=== PATIENT | female | born 1975 | race Caucasian/White ===

== ENCOUNTER → 2018-05-04 14:04 | Outpatient (CLI) | payer BC, SELFPAY ==
[2018-05-04 14:48] LABS: Hemoglobin 13.2 g/dl (12.0-15.0); Mean Corp Hgb Conc 31.4 g/gl (32-36); Mean Corpuscular Hgb 26.3 pg (27.0-32.0); Mean Corpuscular Volume 83.8 fL (81-99); Mean Platelet Vol. 9.2 fl (6.2-12.0); Platelet Count 241 K/mm3 (150-450); RBC Distribution Width CV 13.7 % (11.6-14.6); RBC Distribution Width SD 41.8 fl (35.1-43.9); Red Blood Count 5.01 M/mm3 (4.2-5.4)
[2018-05-04 14:52] LABS: Scan Indicated on CBC? Y/N NO
[2018-05-04 15:04] LABS: Estradiol 79.6 pg/mL; Free T3 2.8 pg/mL (2.18-3.98); T4 Free Direct 0.97 ng/dL (0.76-1.46); Thyroid Stim Hormone (TSH) 1.14 uIU/mL (0.358-3.74)
[2018-05-04 15:06] LABS: Progesterone Level 4.74 ng/mL (See Comment)
[2018-05-04 15:17] LABS: Hemoglobin A1c 5.6 % (4.2-6.3)
== END ==
PROVIDERS: Family Provider Family Medicine; PCP Family Medicine; Visit Provider Obstetrics & Gynecology
DX: N92.6 Irregular menstruation, unspecified (principal)
CPT/HCPCS: 82670; 83036; 84144; 84403; 84439; 84443; 84481; 85027

== ENCOUNTER → 2018-05-31 | Outpatient (CLI) | payer BC, SELFPAY ==
[2018-06-02 13:32] LABS: HPV Reflexed? NOT INDICATED
== END | disposition home or self-care (01) ==
LOC: LABSPEC 10:42
PROVIDERS: Visit Provider Obstetrics & Gynecology
DX: Z12.4 Encounter for screening for malignant neoplasm of cervix (principal)
CPT/HCPCS: 88175; G0145

== ENCOUNTER → 2018-06-27 | Outpatient (CLI) | payer BC, SELFPAY ==
--- NOTE | 2018-06-27 07:01 | BI_ITS ---
MAMMOGRAPHY - BILATERAL SCREENING REASON FOR EXAM: Female, 42 years old. Routine annual screening examination. PERTINENT HISTORY: Non-contributory. TECHNIQUE: Digital bilateral breast tamiko (3D mammographic acquisition) in the CC and MLO projections. 2-D mediolateral oblique (MLO) and craniocaudad (CC) views of both breasts were obtained. CAD: Full Field Digital Mammography with Computer Added Detection was performed. COMPARISON: Comparison is made with prior study dated September 23, 2016 and August 19, 2015. FINDINGS: Breast Composition: There are scattered areas of fibroglandular density. There are no dominant masses or suspicious calcifications. No other significant abnormalities are identified. There has been no significant change since the prior study. BI/SCREENING MAMM (CAD), BILAT IMPRESSION: Stable bilateral screening mammogram. Yearly follow-up mammogram recommended. (A) ASSESSMENT CATEGORY: BIRADS Category 1: Negative. A letter regarding these results will be sent to the patient by the facility within 30 days. Approximately 10% of breast cancers are not detected by mammography. A normal mammogram should not delay biopsy of a clinically suspicious abnormality. [id number] Electronically Signed: Levi Obrien, at 9:28 EDT , Service support ,
== END | disposition home or self-care (01) ==
PROVIDERS: Family Provider Family Medicine; PCP Family Medicine; Referring Provider Obstetrics & Gynecology; Visit Provider Obstetrics & Gynecology
DX: Z12.31 Encounter for screening mammogram for malignant neoplasm of breast (principal)
CPT/HCPCS: 77063; 77067

== ENCOUNTER → 2018-07-19 | Outpatient (CLI) | payer BC, SELFPAY ==
[2018-07-19 09:22] LABS: Hematocrit 38.9 % (37-47); Hemoglobin 12.4 g/dl (12.0-15.0); Mean Corp Hgb Conc 31.9 g/gl (32-36); Mean Corpuscular Hgb 24.8 pg (27.0-32.0); Mean Corpuscular Volume 77.6 fL (81-99); Mean Platelet Vol. 9.7 fl (6.2-12.0); Platelet Count 231 K/mm3 (150-450); RBC Distribution Width CV 14.2 % (11.6-14.6); Red Blood Count 5.01 M/mm3 (4.2-5.4); White Blood Count 8.6 K/mm3 (4.4-11.0)
[2018-07-19 09:23] LABS: Scan Indicated on CBC? Y/N NO
[2018-07-19 09:28] LABS: Prothrombin Time (Protime)PT. 12.8 SECONDS (11.7-14.9)
== END | disposition home or self-care (01) ==
LOC: PAT 08-21 12:32
PROVIDERS: Family Provider Family Medicine; PCP Family Medicine; Referring Provider Obstetrics & Gynecology; Visit Provider Obstetrics & Gynecology
DX: Z01.818 Encounter for other preprocedural examination (principal)
CPT/HCPCS: 36415; 85027; 85610; 85730; 86850; 86900

== ENCOUNTER → 2018-07-26 | Outpatient (CLI) | payer BC, SELFPAY ==
--- NOTE | 2018-07-26 | EMB_PTH ---
PATIENT: KOLTON WEBER LOC: [facility] U#:[id number] AGE/SX: 42/F ROOM: RE07/26/[address]: Dr. Mellisa Wright MD : 1975 BED: DIS: 07/26/2018 SPEC #: [id number] RECD: 07/26/18 14:24 STATUS: ALLAN RAYMOND #: [id number] ROM: 07/26/18 00:[address]: Mellisa Wright DEPT: SURGICAL PATHOLOGY RECD BY: Nilson Celeste ENTERED: 07/26/18 14:24 SP TYPE: ENDOM BX/C JB DR: Dr. Celia Forrester, DO Tissues: Endometrium, NOS Procedures: Surgery Specimen Level IV HEADER OPERATION: Endometrial biopsy PRE-OP DIAGNOSIS: Abnormal uterine bleeding TISSUE SUBMITTED: Endometrial biopsy MICROSCOPIC DIAGNOSIS Endometrial biopsy: Secretory pattern endometrium with focal pseudodecidual change and recent stromal hemorrhage. CE:michael 07/27/18 MICROSCOPIC DESCRIPTION Slides are reviewed. GROSS DESCRIPTION Received in fixative is one container labeled with the patient's name and designated endometrial biopsy. The specimen consists of several serpentine segments of reddish-pink soft tissue that in aggregate measure 2 x 1 x 0.2 cm. The specimen is totally submitted in one cassette. / CE:michael 07/26/18 TC:5 CPT: 36508
== END | disposition home or self-care (01) ==
PROVIDERS: Family Provider Family Medicine; PCP Family Medicine; Referring Provider Obstetrics & Gynecology; Visit Provider Obstetrics & Gynecology
DX: N85.8 Other specified noninflammatory disorders of uterus (principal); N93.9 Abnormal uterine and vaginal bleeding, unspecified
CPT/HCPCS: 88305

== ENCOUNTER 2019-01-01 10:49 | Day surgery (SDC) | payer BC, SELFPAY ==
[2018-12-27 17:12] LABS: Hematocrit 44.8 % (37-47); Hemoglobin 15.1 g/dL (12.0-15.0); Mean Corp Hgb Conc 33.7 g/dL (32-36); Mean Corpuscular Hgb 28.1 pg (27.0-32.0); Mean Corpuscular Volume 83.4 fL (81-99); Mean Platelet Vol. 9.4 fl (6.2-12.0); Platelet Count 246 K/mm3 (150-450); RBC Distribution Width SD 39.1 fl (35.1-43.9); Red Blood Count 5.37 M/mm3 (4.2-5.4); White Blood Count 10.3 K/mm3 (4.4-11.0)
[2018-12-27 17:22] LABS: Prothrombin Time (Protime)PT. 12.8 SECONDS (11.7-14.9)
[2018-12-27 17:23] LABS: Partial Thromboplast Time 31.4 Seconds (24.1-36.2)
[2018-12-27 17:41] LABS: Creatinine, Serum 0.76 mg/dL (0.55-1.02); EST Glomerular Filtration Rate 87 mL/min (>60); Est Glom Filt Rate - Afr Amer 105 mL/min (>60)
[2018-12-27 17:54] LABS: Internal QC Validated? YES +Cl - CLEAR BKGD; Pregnancy, Serum, hCG Quali. NEGATIVE Negative
--- NOTE | 2018-12-31 22:44 | PCM.HP.BLA ---
History and Physical Date of Admission: 01/01/19 Surgical History and Physical Basia Garcia, a 43 year old female 1 0 0 0 1, presents for LAVH/BS on January 01, 2019 at 12:15. -- Uterine Prolapse and Fibroids; Menorrhagia -- Pt has had some bleeding between periods before LMP. Also prolapse is becoming more painful and discomfort. Irregular and heavy periods. Pt decided that she would like to precede with hysterectomy. Ultrasound: uterus: 10.9 x 7.1 x 7.3 cm and contains fibroids. 1-posterior/rt-2.4 x 1.5 x 3.2 cm and 2-posterior/lt-3 x 2.7 x 3.4 cm. The posterior/left fibroid appears to be distorting the posterior uterus to the Endometrium. Uterus is difficult to visualize due to the prolapse. MEDICATIONS HISTORY: Patient is also takin. lisinopril 10 mg tablet, One pill by mouth once a day ALLERGIES: NKDA Infections - chicken pox as a child Illnesses - no serious past illnesses Accidents - no injuries of consequence Hospitalizations - Childbirth Review of Systems: GENERAL - Denies fever, or chills SKIN - Denies skin changes EYES - Denies visual changes EARS - Denies difficulty hearing NOSE - Denies nasal congestion or bleeding MOUTH - Denies sore throat or difficulty swallowing NECK - Denies pain or swelling RESPIRATORY - Denies shortness of breath or wheezing CARDIOVASCULAR - Denies palpitations or chest pain GASTROINTESTINAL - Denies nausea, vomiting, diarrhea, constipation GENITOURINARY - Denies dysuria, frequency of urination, incontinence of urine MUSCULOSKELETAL - Denies joint or muscle pain NEUROLOGICAL - Denies localized numbness or weakness PSYCHIATRIC - Denies depression or anxiety ENDOCRINE - Denies heat or cold intolerance, weight loss or gain HEMATO-IMMUNOLOGIC - Denies excesive bleeding with cuts SOCIAL HISTORY: Alcohol Use - RARELY Smoking - denies smoking Diet - balanced Diet Lifestyle - moderate stress lifestyle and Exercise - regular and very active Seat Belt Use - always Employer - [employer] Job Description - [employer] Illicit Drug Use - denies use of street drugs Sexual Activity - single sexual partner and Residence - lives with Hours Worked - 40 hours per week Spouse-Sig Other Name - Saravanan Spouse-Sig 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 Paternal history of Heart Disease. Father: myelodysplastic syndrome at age 50. Maternal Grandmother: leukemia. MENSTRUAL HISTORY: LMP Known?- DefiniteAmount/Duration - 4-5 DAYS, Regularity - Regular, Frequency - 28 days, LMP - 12/27/18, Age Onset Menarche - 11 PAST PREGNANCIES: Total Pregnancies - 1; Full Term Pregnancies - 1; Premature - 0; Abortions, Induced - 0; Abortions, Spontaneous - 0; Ectopics - 0; Multiple Births - 0; Living Children - 1 SURGICAL HISTORY: 1. wisdom teeth removed PHYSICAL EXAM BP- 116/78 Sitting, Right arm, regular cuff Weight- 209.42270 lbs Height- 68.5 inch BMI:31.38 CONSTITUTIONAL - NAD, well nourished, and well developed SKIN - No rash, lesions, or ulcers HEENT - Normocephalic, PERRLA, EOMI NECK - No nodes, no nuchal rigidity and thyroid normal size and texture LYMPH NODES - Palpation of lymph nodes in neck and groins within normal limits LUNGS - CTA x2 without wheezes, crackles or rales CARDIAC - Regular rate and rhythm without rubs, murmurs, or gallops BREAST - No dominant masses, no tenderness, no axillary adenopathy, no nipple discharge, no skin changes ABDOMEN - Without hepatosplenomegaly, distention, masses, rebound, or guarding; normal bowel sounds; no hernias EXTREMITIES - No edema or calf tenderness NEUROLOGICAL - Cranial nerves II-XII grossly intact PSYCHIATRIC - A and O to time, place, person, mood and affect External Genitial Vagina - non-tender without lesions Urethra/Urethral Meatus - non-tender Bladder - non-tender Vagina - vaginal enrique are pink and moist without loss of rugae and no evidence of atropy Cervix - without cervical motion tenderness and has normal size and features without evident lesions Uterus - 5-6 cm in size, mobile and nontender Adnexa - clear without massess or tenderness ASSESSMENT/PLAN: Uterine Prolpase, Fibroids and Menorrhagia. Plan to proceed with LAVH/BS. Discussed RBAs and all questions answered.
[2019-01-01] VITALS (9 sets, daily range): BP systolic 87–141; BP diastolic 64–86; PULSE 61–92; RESP 15–18; TEMP 36.3–37.4; O2SAT 94–99; BMI 31.4
[2019-01-01 11:22] LABS: Internal QC Validated? YES +Cl - CLEAR BKGD; Pregnancy, Urine Negative Negative
[2019-01-01] MEDS: Lactated Ringers 1,000 ML 100 ML IV ×2 (11:35→17:05)
--- NOTE | 2019-01-01 12:25 | HYST_PTH ---
PATIENT: KOLTON WEBER LOC: [facility] [place] U#:[id number] AGE/SX: 43/F ROOM: RE01/01/[address]: Dr. Yoandy Yu MD : 1975 BED: DIS: 01/02/2019 SPEC #: [id number] RECD: 01/01/19 16:13 STATUS: ALLAN RAYMOND #: [id number] ROM: 01/01/19 12:[address]: Yoandy Yu DEPT: SURGICAL PATHOLOGY RECD BY: Catrachito Acosta ENTERED: 01/02/19 11:03 SP TYPE: HYSTERECT OTHR DR: Dr. Celia Forrester, DO Tissues: Uterus, NOS Procedures: Surgery Specimen Level V HEADER OPERATION: Hysterectomy, Lap assisted vaginal, salpingectomy PRE-OP DIAGNOSIS: Uterine prolapse, fibroids and menorrhagia TISSUE SUBMITTED: Uterus, bilateral fallopian tubes MICROSCOPIC DIAGNOSIS Uterus and bilateral fallopian tubes, vaginal hysterectomy and bilateral salpingectomy: Cervix - chronic cystic cervicitis and squamous metaplasia. Inflamed benign ecto- and endocervical polyp (3.5 cm in greatest length). Endometrium - focal simple hyperplasia without atypia. See comment. Myometrium - intramural ad subserosal leiomyomas (largest measuring 3 cm in greatest dimension). Bilateral fallopian tubes - no pathologic diagnosis. SJ:rg 01/03/19 COMMENT Focal morular metaplasia is also noted. Case has been reviewed in consultation with Dr. Rome who concurs with the above diagnosis. IDC:AM MICROSCOPIC DESCRIPTION Slides are reviewed. GROSS DESCRIPTION Received in fixative is one container labeled with the patient's name and designated uterus. The specimen consists of a uterus with attached cervix and attached right and left fallopian tubes. The uterus with cervix measures 13.5 x 7 x 6 cm and weighs 227 gm. The ectocervix is grossly unremarkable. A cervical polyp is seen at the endocervical opening measuring 3.5 cm in length and 0.5 cm in width. The endocervical canal measures 3.4 cm in length and is grossly unremarkable. The triangular endometrial cavity measures 4.2 x 3 cm. The endometrium measures up to 0.2 cm in thickness. The myometrium measures 2.2 cm in average thickness and distorted by multiple spherical rubbery nodules ranging in size from 0.5 to 3 cm. The nodules are intramural and subserosal in location. The right and left fallopian tubes are similar in appearance with average lengths of 5.5 mm and average diameters of 0.7 cm. Asset Management Lead sections are submitted in 11 cassettes as follows: 1 - anterior cervix, 2 - posterior cervix, 3 & 4 - anterior uterine wall, 5 & 6 - posterior uterine wall, 7 - largest myometrial mass, 8 - smaller myometrial masses, 9 - right fallopian tube, 10 - left fallopian tube, 11 - cervical polyp. / AM:michael 01/02/19 TC:1 CPT: 39401
[2019-01-01] MEDS: Ropivacaine 0.5% 30 ML Vial (16:00)
--- NOTE | 2019-01-01 16:09 | PCM.OPRPT ---
Report of Operation Date of Procedure: 01/01/19 Pre-Operative Diagnosis: Uterine Prolapse, Uterine Fibroids, Menorrhagia Post-Operative Diagnosis: Uterine Prolapse, Uterine Fibroids, Menorrhagia Surgery/Procedure Performed:: Laparoscopic Assisted Vaginal Hysterectomy and Bilateral Salpingectomy Description of Surgical Findings:: 12 cm size uterus with normal-appearing fallopian tubes and ovaries. Cervix which prolapsed approximately 2 to 3 cm outside the vaginal introitus at rest. 2 cm x 0.25 cm polyp noted on endocervix. Mild to moderate cystocele and rectocele nurse prn: Cody Gordon nurse prn: Adelaide Lind Type of Anesthesia:: General - Endotracheal Anesthesiologist: Kenny Griggs Specimen's removed: Uterus and bilateral fallopian tubes Drains: Frank to straight drain Estimated Blood Loss (mL): 150 cc Fluids Replaced: 1800 cc crystalloid Description of Procedure: Surgeon: Yoandy Yu MD, FACOG Indications: This is a 43-year-old patient who is been having problems with uterovaginal prolapse and menorrhagia. Conservative measures have not been helpful. Given this the patient desires that we proceed the above procedure. She has been counseled regarding the risk and indications of this procedure including the possibility of bleeding, infection, and injury to surrounding structures such as bowel bladder. All questions were answered. Procedure: Patient was taken to the operating room where after induction of general anesthesia she was placed in the dorsal lithotomy position and prepped and draped in the usual sterile fashion. A Frank catheter was placed. Anterior cervix was grasped with a tenaculum and anterior cervix circumscribed with cautery on a setting of 35 W coagulation. Anterior vaginal mucosa was undermined and a 4 x 4 raytec sponge was placed to identify the peritoneal reflection of the bladder intraperitoneally. Conn cannula was placed and attention was turned towards the laparoscopic portion of the procedure. Approximately 30 cc of half percent ropivacaine was injected subumbilically, suprapubically, and midway between. A 5 mm bladeless trocar was introduced subumbilically and intraperitoneal placement confirmed. CO2 insufflation was completed and, under direct visualization, a 5 mm bladeless trocar was introduced suprapubically. A 5 mm bladeless trocar was introduced midway between these 2 ports. Enseal was used to cauterize the infundibulopelvic ligaments to the level of the round ligament and the Raytec placed in the vagina was visualized. Scissors was used to open the peritoneum and under direct visualization a narrow Mariano was placed vaginally; CO2 gas was stopped and attention turned toward the vaginal hysterectomy portion of the procedure. The posterior aspect of the cervix was circumscribed with a knife and posterior peritoneum easily entered. Progressive bites were taken on either side of the uterine cervix and each pedicle ligated with 0 Vicryl suture. Superior pedicles were ligated ?2 with 0 Vicryl suture and sidewall pedicles were examined and oversewn where necessary with [id number] 0 Vicryl suture to achieve hemostasis. Posterior vaginal cuff was oversewn with running locked 0 Vicryl suture. Hemostasis was noted and peritoneum was closed in a pursestring fashion incorporating superior pedicles into the stitch. Vaginal cuff was then closed front to back with interrupted [id number] 0 Vicryl suture. Hemostasis was noted. Attention was turned toward the laparoscopic portion of the procedure. CO2 insufflation was completed and pedicles were examined and noted to be hemostatic. Laparoscopic instruments with as much CO2 gas as possible was removed and skin incisions were closed with interrupted 4-0 Monocryl suture. Steri-Strips were placed across the incisions. Patient tolerated the procedure well was taken to recovery room in satisfactory condition; sponge instrument and needle counts were all reportedly correct. Estimated blood loss for the case was 150 cc. For 10 2 g IV was given prior to beginning the operative procedure. There were no apparent complications of the surgery. Specimen to pathology was uterus and bilateral fallopian tubes. Grafts/Implants Used: None - Complications None - Admit VTE Documentation VTE Present on Admission: Yes VTE Mechan Device Prophylaxis: [facility] [place] Pharm Prophylaxis ordered?: Yes
--- NOTE | 2019-01-01 16:15 | DCINST_ITS ---
Discharge Diet: No Restrictions Discharge Activity: Return to Normal Activity, May Not Drive - while taking narcotic pain medications., May Shower, May Take a Tub Bath May resume sexual activity in: 6-8 weeks Call your doctor if your incision/area has: Continuous Slow Oozing, Sudden Inc reased Bleeding, Increased Pain/ Swelling, Increased Redness, Foul Smelling Discharge Call your doctor if you observe: Fever of 101 or Higher, Inability to urinate, Inability to have a bowel movement, Using more than one pad per hour Allergies/Adverse Reactions: Allergies No Known Allergies Allergy (Verified 01/01/19 11:18) Medications to take at Discharge Lisinopril [Prinivil] 10 mg PO QHS 07/13/18 Multivitamin with Minerals [Hair, Skin & Nails] 1 each PO BID 07/13/18 Steward-3 Fatty Acids/Fish Oil [Fish Oil 1,000 mg Capsule] 1 each PO DAILY 07/13/18 Ferrous Sulfate 325 mg PO DAILY 12/25/18 Docusate Sodium [Colace] 100 mg PO BID PRN PRN #60 cap 01/01/19 Oxycodone [Oxyir] 5 mg PO Q6H PRN PRN 7 Days #20 tablet 01/01/19 The following prescriptions were given: Docusate Sodium [Colace] 100 mg PO BID PRN PRN #60 cap PRN Reason: Constipation Transmission Status: Pending to [facility] Oxycodone [Oxyir] 5 mg PO Q6H PRN PRN 7 Days #20 tablet PRN Reason: Pain Score 6-10/10 Transmission Status: Sent to [facility] Orders to be completed after discharge: CBC-Complete Blood Cnt No Diff Time Frame: 01/01/19, Facility: [facility], Location: Laboratory Partial Thromboplast Time Time Frame: 01/01/19, Facility: [facility], Location: Laboratory Prothrombin Time w/INR Time Frame: 01/01/19, Facility: [facility], Location: Laboratory Primary Care Physician: Celia Forrester [Primary Care Provider] - Test Results: Test results from this visit will be discussed in further detail at your follow- up appointment, if applicable.
[2019-01-01] MEDS: Ketorolac 30 MG/ML Syringe IV ×2 (18:25→23:45)
[2019-01-01] MEDS: Dextrose 5%-Lactated Ringers 1,000 ML 150 ML IV (18:25)
[2019-01-01] MEDS: Ondansetron 4 MG/2 ML Vial IV ×2 (19:21→23:45)
[2019-01-01] MEDS: Enoxaparin 30 MG/0.3 ML Syringe SC (20:28)
[2019-01-01] MEDS: Acetaminophen 500 MG Tablet 1000 MG PO (20:28)
[2019-01-01] MEDS: Lisinopril 10 MG Tablet PO (22:11)
[2019-01-01] MEDS: 0.9% Saline Lock 10 ML Syringe IV ×2 (23:45→23:50)
[2019-01-02] MEDS: oxyCODONE 5 MG Tablet PO ×2 (01:01→08:24)
[2019-01-02] MEDS: Dextrose 5%-Lactated Ringers 1,000 ML 150 ML IV (01:02)
[2019-01-02 04:05] VITALS: BP 118/75; PULSE 97; RESP 16; TEMP 37.3; O2SAT 95
[2019-01-02] MEDS: Acetaminophen 500 MG Tablet 1000 MG PO (04:12)
[2019-01-02] MEDS: Ketorolac 30 MG/ML Syringe IV (05:46)
[2019-01-02 06:02] LABS: Hematocrit 35.6 % (37-47); Hemoglobin 11.7 g/dL (12.0-15.0); Mean Corp Hgb Conc 32.9 g/dL (32-36); Mean Corpuscular Hgb 27.7 pg (27.0-32.0); Mean Corpuscular Volume 84.4 fL (81-99); Mean Platelet Vol. 9.2 fl (6.2-12.0); Platelet Count 243 K/mm3 (150-450); RBC Distribution Width CV 12.6 % (11.6-14.6); RBC Distribution Width SD 38.1 fl (35.1-43.9); Red Blood Count 4.22 M/mm3 (4.2-5.4); White Blood Count 16.2 K/mm3 (4.4-11.0)
[2019-01-02 06:31] LABS: EST Glomerular Filtration Rate 82 mL/min (>60); Est Glom Filt Rate - Afr Amer 99 mL/min (>60); Estimated Creatinine Clearance 92.81 ml/min
[2019-01-02 08:12] VITALS: BP 133/81; PULSE 80; PULSE 88; RESP 18; TEMP 36.8; O2SAT 97
[2019-01-02] MEDS: Docusate Sodium 100 MG Capsule PO (08:23)
--- NOTE | 2019-01-02 08:47 | PN.OBGYN_ITS ---
Subjective: Patient without complaints. Tolerating diet well. Denies flatus. Minimal vaginal bleeding. Feeling well. Ready to go home. - Physical Exam Vitals/I&O's: Vital Signs Temp Pulse Resp BP Pulse Ox 98.2 F 88 18 133/81 H 97 01/02/19 08:12 01/02/19 08:12 01/02/19 08:12 01/02/19 08:12 01/02/19 08:12 Oxygen Delivery Method Room Air Weight: 212 lb 15.465 oz Body Mass Index (BMI) 31.4 Intake and Output for Last 24 Hours 12/31/18 01/01/19 01/02/19 23:59 23:59 23:59 Intake Total 1191.67 / 1491.67 3240.0 / 3240.0 Output Total 50 / 575 2875 / 2875 Balance 1141.67 / 916.67 365.0 / 365.0 Comment: Hemoglobin and creatinine okay. Minimal vaginal bleeding. Laboratory Results 01/01/19 11:17: Urine Test Negative 01/02/19 05:35: WBC 16.2 H, RBC 4.22, Hgb 11.7 L, Hct 35.6 L, MCV 84.4, MCH 27.7, MCHC 32.9, RDW Std Deviation 38.1, RDW Coeff of Linda 12.6, Plt Count 243, MPV 9.2 01/02/19 05:35: Creatinine 0.80, Estim Creat Clear Calc 92.81, Est GFR (MDRD) Af Amer 99, Est GFR (MDRD) Non-Af 82 Current Medications Acetaminophen (Tylenol) 1,000 mg PO Q8H PRN PRN PRN Reason: Pain Score 1-3/10 or Fever Last Admin: 01/02/19 04:12 Dose: 1,000 mg Documented by: Docusate Sodium (Colace) 100 mg PO BID PRN PRN PRN Reason: Constipation Last Admin: 01/02/19 08:23 Dose: 100 mg Documented by: Hydromorphone HCl (Dilaudid Inj) 0.5 mg IV Q3H PRN PRN PRN Reason: Pain Score 4-10/10 Sodium Chloride () 250 mls @ 15 mls/hr IV .[id number] PRN PRN Reason: Saline Flush Ketorolac Tromethamine (Toradol) 10 mg PO Q6 [facility] Stop: 01/07/19 05:51 Last Admin: 01/02/19 05:59 Dose: Not Given Documented by: Lisinopril (Zestril) 10 mg PO QHS [facility] Last Admin: 01/01/19 22:11 Dose: 10 mg Documented by: Ondansetron HCl (Zofran) 4 mg IV Q4H PRN PRN PRN Reason: NAUSEA Last Admin: 01/01/19 23:45 Dose: 4 mg Documented by: Oxycodone HCl (Oxyir) 5 mg PO Q4H PRN PRN PRN Reason: Pain Score 4-10/10 Last Admin: 01/02/19 08:24 Dose: 5 mg Documented by: Simethicone (Mylicon) 80 mg PO PCHS [facility] Last Admin: 01/02/19 08:23 Dose: 80 mg Documented by: Sodium Chloride () 10 - 40 ml IV UD PRN PRN Reason: SALINE FLUSH Last Admin: 01/01/19 23:50 Dose: 10 ml Documented by: Medical Necessity - Tobacco Use Smoking Status: Never smoker Tobacco Use: Non-smoker Assessment/Plan Doing well postoperative day #1 status post laparoscopic assisted vaginal hysterectomy and bilateral salpingectomy. Will release to home with routine instructions.
== END 2019-01-02 10:36 | disposition home or self-care (01) ==
LOC: SDC 10:50 → AC 10:50 → MS3 16:11
PROVIDERS: Anesthesiology; Family Provider Family Medicine; PCP Family Medicine; Referring Provider Obstetrics & Gynecology; Visit Provider Obstetrics & Gynecology
PROC: 0UT9FZZ Resection of Uterus, Via Natural or Artificial Opening With Percutaneous Endoscopic Assistance (ICD-10-PCS; CPT 58552; principal; 2019-01-01 12:00)
DX: N87.9 Dysplasia of cervix uteri, unspecified (principal); D25.1 Intramural leiomyoma of uterus; D25.2 Subserosal leiomyoma of uterus; I10 Essential (primary) hypertension; Z79.899 Other long term (current) drug therapy
CPT/HCPCS: 58552; 36415; 81025; 82565; 84703; 85027; 85610; 85730; 86850; 86900; 86901; 88307; J7120; A4216; C1760; J2405

== ENCOUNTER → 2019-01-17 16:52 | Outpatient (CLI) | payer BC, SELFPAY ==
[2019-01-01 18:01] VITALS: BMI 31.4
== END ==
PROVIDERS: Visit Provider Obstetrics & Gynecology
DX: R30.0 Dysuria (principal)
CPT/HCPCS: 87086; 87088

== ENCOUNTER → 2020-03-26 07:08 | Outpatient (CLI) | payer OTHER, SELFPAY ==
[2019-01-01 18:01] VITALS: BMI 31.4
--- NOTE | 2020-03-26 07:11 | BI_ITS ---
MAMMOGRAPHY - BILATERAL SCREENING REASON FOR EXAM: Female, 44 years old. Routine annual screening examination. PERTINENT HISTORY: Non-contributory. TECHNIQUE: Digital bilateral breast garrett (3D mammographic acquisition) in the CC and MLO projections. 2-D mediolateral oblique (MLO) and craniocaudad (CC) views of both breasts were obtained. CAD: Full Field Digital Mammography with Computer Added Detection was performed. COMPARISON: Comparison is made with prior study dated 06/27/2018 and 09/23/2016. FINDINGS: Breast Composition: There are scattered areas of fibroglandular density. There are no dominant masses or suspicious calcifications. No other significant abnormalities are identified. There has been no significant change since the prior study. BI/SCRN MAMM (CAD)W/GARRETT BILAT IMPRESSION: Stable bilateral screening mammogram. Yearly follow-up mammogram recommended. (A) ASSESSMENT CATEGORY: BIRADS Category 1: Negative. A letter regarding these results will be sent to the patient by the facility within 30 days. Approximately 10% of breast cancers are not detected by mammography. A normal mammogram should not delay biopsy of a clinically suspicious abnormality. [id number] Electronically Signed: Levi Obrien MD at 8:01 EST , Service support ,
== END ==
PROVIDERS: PCP Family Medicine; Referring Provider Nurse Practitioner Gerontology; Visit Provider Nurse Practitioner Gerontology
DX: Z12.31 Encounter for screening mammogram for malignant neoplasm of breast (principal)
CPT/HCPCS: 77063; 77067

== ENCOUNTER → 2021-01-16 08:39 | Outpatient (CLI) | payer OTHER, SELFPAY ==
--- NOTE | 2021-01-16 09:30 | RAD_ITS ---
STUDY: BARIUM ENEMA. REASON FOR EXAM: Female, 45 years old. INCOMPLETE COLONOSCOPY FLUOROSCOPY TIME (if supplied): ( 1 minute and 10 seconds. ) minutes/seconds. 15 images were obtained. TECHNIQUE: A marketing communications specialist film was obtained. Following this, contrast was introduced retrograde into the rectum. The entire colon was opacified. COMPARISON: None. FINDINGS: The gas pattern is unremarkable on the marketing communications specialist film. There is borderline splenomegaly. No evidence of obstruction to the antegrade or retrograde flow of barium. No mass lesion is seen. RAD/Barium Enema No Air Cont IMPRESSION: Unremarkable barium enema. Electronically Signed: Levi Obrien MD at 10:33 EST , Service support ,
== END ==
PROVIDERS: PCP Family Medicine; Referring Provider Surgery; Visit Provider Surgery
DX: Z53.9 Procedure and treatment not carried out, unspecified reason (principal); Z83.71 Family history of colonic polyps
CPT/HCPCS: 74270

== ENCOUNTER → 2021-05-27 07:29 | Outpatient (CLI) | payer OTHER, SELFPAY ==
--- NOTE | 2021-05-27 07:33 | BI_ITS ---
MAMMOGRAPHY - BILATERAL SCREENING 3-D TOMOSYNTHESIS REASON FOR EXAM: Female, 45 years old. SCREENING PERTINENT HISTORY: No significant family history. TECHNIQUE: 2-D mammograms and 3-D Tomosynthesis of the breast (s) were performed. CAD was performed. COMPARISON: 03/26/2020 FINDINGS: The breast composition is composed of scattered fibroglandular density. Scattered benign calcifications are seen. No dense spiculated masses or suspicious microcalcifications are identified. No architectural distortion is identified. There is no skin thickening or retraction. There has been no significant change since the prior study. BI/SCRN MAMM (CAD)W/GARRETT BILAT IMPRESSION: No mammographic signs of malignancy. Routine yearly mammograms recommended. ASSESSMENT CATEGORY: BIRADS Category 1: Negative. A letter regarding these results will be sent to the patient by the facility within 30 days. FOLLOW UP RECOMMENDATION: Yearly follow up mammogram recommended. (A) Approximately 10% of breast cancers are not detected by mammography. A normal mammogram should not delay biopsy of a clinically suspicious abnormality. Electronically Signed: René Silav MD at 8:55 EDT ,
== END ==
PROVIDERS: PCP Family Medicine
DX: Z12.31 Encounter for screening mammogram for malignant neoplasm of breast (principal)
CPT/HCPCS: 77063; 77067

== ENCOUNTER → 2022-11-01 | Outpatient (CLI) | payer OTHER, SELFPAY ==
--- NOTE | 2022-11-01 12:29 | BI_ITS ---
MAMMOGRAPHY - BILATERAL SCREENING REASON FOR EXAM: Female, 47 years old. Routine annual screening examination. PERTINENT HISTORY: Non-contributory. TECHNIQUE: Digital bilateral breast garrett (3D mammographic acquisition) in the CC and MLO projections. 2-D mediolateral oblique (MLO) and craniocaudad (CC) views of both breasts were obtained. CAD: Full Field Digital Mammography with Computer Added Detection was performed. COMPARISON: Comparison is made with prior study dated May 27, 2021 and March 26, 2020. FINDINGS: Breast Composition: There are scattered areas of fibroglandular density. There are no dominant masses or suspicious calcifications. Stable small benign appearing bilateral axillary lymph nodes. No other significant abnormalities are identified. There has been no significant change since the prior study. BI/SCRN MAMM (CAD)W/GARRETT BILAT IMPRESSION: Stable bilateral screening mammogram. Yearly follow-up mammogram recommended. (A) ASSESSMENT CATEGORY: BIRADS Category 2: Benign. A letter regarding these results will be sent to the patient by the facility within 30 days. Approximately 10% of breast cancers are not detected by mammography. A normal mammogram should not delay biopsy of a clinically suspicious abnormality. [id number] Electronically Signed: Levi Obrien MD at 14:01 EDT ,
== END | disposition home or self-care (01) ==
LOC: OPBI 12:26
PROVIDERS: PCP Family Medicine
DX: Z12.31 Encounter for screening mammogram for malignant neoplasm of breast (principal)
CPT/HCPCS: 77063; 77067

== ENCOUNTER → 2024-04-19 | Outpatient (CLI) | payer OTHER, SELFPAY ==
--- NOTE | 2024-04-19 12:27 | BI_ITS ---
PROCEDURE: SCRN MAMM (CAD)W/GARRETT BILAT REASON FOR EXAM: F, Age 48 y/o , SCREENING. No family history. TECHNIQUE: Bilateral screening digital breast tomosynthesis with 2D and 3D images. Computer aided detection. COMPARISON: Prior exam(s) dating back to November 01, 2022.. FINDINGS: There are scattered areas of fibroglandular density. Stable small benign- appearing bilateral axillary lymph nodes. No suspicious masses, areas of developing architectural distortion, or suspicious calcifications. BI/SCRN MAMM (CAD)W/GARRETT BILAT IMPRESSION: BI-RADS 2: BENIGN. RECOMMEND ANNUAL MAMMOGRAPHIC SCREENING. Follow-up code: Routine Follow-up The patient will be notified of the results by letter. Reading Location: [id number]
== END | disposition home or self-care (01) ==
PROVIDERS: PCP Family Medicine
DX: Z12.31 Encounter for screening mammogram for malignant neoplasm of breast (principal)
CPT/HCPCS: 77063; 77067

== ENCOUNTER 2024-11-30 14:39 | Emergency (ER) | payer OTHER, SELFPAY ==
[2024-11-30 14:40] VITALS: BP 181/102; PULSE 105; RESP 22; TEMP 36.3; O2SAT 97; BMI 34.0
--- NOTE | 2024-11-30 14:51 | EKG12_ITS ---
Test Reason : CP Blood Pressure : */* mmHG Vent. Rate : 97 BPM Atrial Rate : 97 BPM P-R Int : 150 ms QRS Dur : 88 ms QT Int : 354 ms P-R-T Axes : 9 12 36 degrees QTcB Int : 449 ms Normal sinus rhythm Normal ECG Confirmed by MELY LINDQUIST ([id number]), film editor supervisor DANITZA MARTINO ([id number]) on 12/03/2024 6:39:30 AM Referred By: UG/ER/DH Confirmed By: MELY LINDQUIST
--- NOTE | 2024-11-30 14:52 | EX.ED.DYSGE1 ---
HPI History of Present Illness Chief Complaint: Chest Pain Detail of Chief Complaint: Multiple symptoms which include chest heaviness Informant: patient Onset/Context/Timing Onset: Today (Chest pressure, fogginess in her head, bilateral upper extremity numbness) and Days (Days of not feeling well) Context: Sudden Onset Timing: Intermittent Quality: Detailed HPI narrative Location: Detailed HPI narrative Current Severity: Mild (Not feeling right) Maximum Severity: Moderate Worsened by: Nothing Relieved by: Nothing Associated Symptoms Associated Symptoms: No constitutional symptoms Narrative Narrative: Patient is a 49-year-old woman. She has history of alopecia and is on Aldactone and minoxidil and takes lisinopril and hydrochlorothiazide for elevated blood pressure. She had a recent CT of her chest with a high calcium score. She has a follow-up appointment at with cardiology. She reports not feeling well for the past couple of days. This is intermittent. Nothing seems to precipitate, alleviate or exacerbate her not feeling well. She does report floaty sensation in her head. She denies double vision, blurred vision loss of vision. She has tinnitus. She denies decreased hearing. She denies upper respiratory tract infectious symptoms. Today at rest she had 10 minutes of midsternal chest pressure without associated symptoms or radiation. Nothing made it better, worse. She denies history of peptic ulcer disease, hiatal hernia or reflux. She states occasional take [id number] medication. On her med list, noted that she was prescribed Protonix at 1 point. She denies any intolerance to greasy or fried foods. There is no family history of biliary disease. There is a family history of mother having bypass surgery at the age of 50 and maternal grandfather dying of cardiac disease at the age of 50. She denies history of VTE. She denies leg pain, swelling discoloration. She denies risk factors for VTE. Prior similar symptoms: No Recent Illness/Hospitalization: No PFSH PFSH Medical History Fasciitis Depression Anxiety Fibromyalgia Vitamin deficiency Skin cancer GERD (gastroesophageal reflux disease) Pneumonia Osteoarthritis Heart murmur Irritable bowel syndrome (IBS) Migraines Headache Goiter History of emotional problems Thyroid cancer Back pain Asthma Seasonal allergies Neuropathy High triglycerides Hypertension Home Medications Medication Instructions Recorded Last Taken Type lisinopril 10 mg tablet (Prinivil) 10 mg PO QHS 07/13/18 Unknown History multivitamin with minerals 1 ea PO BID 07/13/18 Unknown History (Hair,Skin and Nails tablet) omega-3 fatty acids-fish oil 340 1 ea PO DAILY 07/13/18 Unknown History mg-1,000 mg capsule (Fish Oil) docusate sodium 100 mg capsule 100 mg PO BID PRN PRN Constipation 01/01/19 Unknown Rx #60 caps bupropion HCl 150 mg tablet,12 hr 150 mg PO BID 11/19/21 Unknown History sustained-release (Wellbutrin SR) buspirone 5 mg tablet 5 mg PO BID 11/19/21 Unknown History duloxetine 60 mg capsule,delayed 60 mg PO DAILY 11/19/21 Unknown History release flurbiprofen 100 mg tablet 100 mg PO TID PRN pain #90 tabs 11/19/21 Unknown Rx lamotrigine 25 mg tablet 50 mg PO ONCE 11/19/21 Unknown History pantoprazole 40 mg tablet,delayed 40 mg PO BID 11/19/21 Unknown History release thyroid (pork) 90 mg tablet (CLEANER ASSISTANT 90 mg PO DAILY 11/19/21 Unknown History Thyroid) Allergy/AdvReac Type Severity Reaction Status Date / Time No Known Allergies Allergy Verified 11/30/24 14:40 Family History Mother Asthma Breast cancer Diabetes Heart disease Thyroid disorder Hx of ulcer disease Anemia Anxiety Arthritis Bowel disease Depression Mental disorder Psychiatric care Grandmother Diabetes Arthritis Depression Osteoporosis Parkinson disease Sister Diabetes Anxiety Depression Mental disorder Psychiatric care Grandfather Heart disease Brother Hypertension Depression Other Alcoholism Kidney disease Surgical History H/O laparoscopy History of thyroidectomy History of hysterectomy Social History Smoking Status: Never smoker second hand exposure: No alcohol intake: never substance use type: does not use what type of physical activity do you participate in: walking frequency: 3-4 times per week anibal/cheondoism: Evangelical seatbelt use: always ROS ROS ED Constitutional Constitutional ED: Denies chills, fever(s), subjective, sweats or weight loss Eyes Eyes: Denies blurry vision, change in vision or diplopia ENT ENT ED: Denies ear pain, rhinorrhea or sore throat Cardiovascular Cardiovascular: Reports chest pain; Denies orthopnea, palpitations, paroxysmal nocturnal dyspnea or racing heartbeat Respiratory/Chest Respiratory/Chest: Denies cough, dyspnea, dyspnea on exertion, orthopnea or paroxysmal nocturnal dyspnea Gastrointestinal Gastrointestinal: Denies abdominal pain, diarrhea, nausea or vomiting Genitourinary Genitourinary ED: Denies dysuria, hematuria or urinary frequency Musculoskeletal Musculoskeletal: Denies arthralgias, back pain, myalgias or neck pain Integumentary Denies abscess, Abrasions or rash Neurologic Neurologic: Reports paresthesias RUE and LUE (This did not occur when she was having chest discomfort. There is no precipitating, alleviating or exacerbating factor.) Endocrine Endocrinology: Denies cold intolerance or heat intolerance Hematologic/Lymphatic Hematologic/Lymphatic: Reports systems reviewed and no addt'l complaints, except as documented EXAM Physical Exam Const Vital Signs: 11/30/24 14:40 11/30/24 14:40 11/30/24 15:40 Temperature 97.4 F L Temperature Source Temporal Pulse Rate 105 H 72 Respiratory Rate 22 H 16 Respiratory Effort Normal Non-Labored Blood Pressure 181/102 H 121/70 H Blood Pressure Mean 128 87 Pulse Ox 97 98 Oxygen Delivery Method Room Air 11/30/24 16:00 11/30/24 17:00 Temperature Temperature Source Pulse Rate 79 95 Respiratory Rate 11 L 18 Respiratory Effort Blood Pressure 124/76 H 119/81 H Blood Pressure Mean 92 93 Pulse Ox 96 95 Oxygen Delivery Method Room Air Positive well nourished and well developed General Appearance ED: well developed, NAD and pallor HEENT Reports moist mucous membranes HEENT Narrative: There is no obvious abnormality noted on gross exam. Eyes PERRL and EOMs intact bilaterally General Eye ED: Negative for pale conjunctiva or scleral icterus Neck supple and no JVD Chest Wall palpation of chest normal Resp normal respiratory effort and clear to auscultation bilaterally Cardio regular rate, regular rhythm, S1 normal heart sound, S2 normal heart sound and no murmurs GI normal to inspection, nondistended, normoactive bowel sounds, non-tender, non-distended and no masses; Negative for hepatosplenomegaly Back/Spine no CVA tenderness Extremity normal to inspection Extremity Narrative: There is no asymmetry, swelling, discoloration, leg vein distention, palpable cords or tenderness along the distribution of the deep venous system. Neuro oriented x3 and CN's II-XII intact bilaterally Sensorium / Orientation: alert Psych Mood & Affect: depressed Skin no rashes or lesions noted, no wounds and skin turgor normal General Skin Exam: pallor; Negative for elasticity normal or jaundice MDM MDM MDM Narrative Medical decision making narrative: Patient with multitude of symptoms. Will obtain electrolyte panel since she is on hydrochlorothiazide and assess sodium, potassium and chloride as well as renal function. CBC to rule out anemia since she appears pale. Because of her risk factors for cardiac disease and she described chest pressure will obtain EKG and troponin. Note review of prior records indicates she does have a history of GERD. History & Record Review Additional record(s) reviewed:: Prior outpatient record and Prior labs Lab Data Attestation: I reviewed the patient's lab results. Lab results narrative: CBC is unremarkable. There is a slight shift with no bandemia. Competence of metabolic panel is unremarkable. Patient has mild hyponatremia and hypochloremia due to the thiazide diuretic. Liver enzymes are normal. Troponin is less than 6. Labs: Laboratory Results - last 24 hr 11/30/24 11/30/24 14:58 17:12 WBC 10.7 RBC 5.25 Hgb 15.3 H Hct 43.6 MCV 83.0 MCH 29.1 MCHC 35.1 RDW Std Deviation 37.1 RDW Coeff of Linda 12.2 Plt Count 251 MPV 8.8 Immature Gran % (Auto) 0.700 Neut % (Auto) 74.0 H Lymph % (Auto) 18.6 L [place] % (Auto) 5.8 Eos % (Auto) 0.5 Baso % (Auto) 0.4 Absolute Neuts (auto) 7.9 H Absolute Lymphs (auto) 1.98 Nucleated RBC % 0 Sodium 132 L Potassium 4.1 Chloride 94 L Carbon Dioxide 24.6 Anion Gap 13 BUN 18 Creatinine 0.94 Estim Creat Clear Calc 91.16 Est GFR (MDRD) Non-Af 74 BUN/Creatinine Ratio 18.9 Glucose 101 H Calcium 9.6 Total Bilirubin 0.52 AST 26 ALT 27 Alkaline Phosphatase 69 Troponin T High Sens < 6 Troponin T Hi Sens 2 Hr < 6 Total Protein 7.5 Albumin 4.5 Globulin 3.0 Albumin/Globulin Ratio 1.5 2-hour troponin is less than 6. Both were less than 6. This rules out cardiac etiology. Radiography Chest X-Ray - ED: 2 View, Read by ED Physician (Independent reviewed interpreted by me at 1513.), Heart, Lungs, Mediastinum, Bony Structures (Bony structures reveal degenerative arthritic changes of the thoracic vertebrae.) and No Acute Disease Diagnostic Testing: Clinical Impression(s) from Imaging Studies Chest X-Ray 11/30/24 15:02 IMPRESSION: No focal consolidations. Reading Location: [facility] EKG Initial EKG: Attestation: I personally reviewed and interpreted this EKG as follows: Interpretation: Sinus Rhythm (Rate is 97. AL interval is 150 ms. QRS duration 88 ms. QT duration 354 ms. [place] is normal. The EKG is normal.) Differential Diagnosis Chest pain/SOB: pulmonary embolism Reason(s) PE less likely: Positive for Well's <3, not tachycardic and not hypoxic, pneumothorax Reason(s) pneumothorax less likely: Positive for bilateral breath sounds and [employer] withhout PTX, pneumonia Reason(s) pneumonia less likely: Positive for no infiltrate on CXR, no noted fever and symptoms not consistent with acute infection, aortic dissection Reason(s) Aortic dissection less likely:: Positive for normal vascular exam, normal neurological exam, no significant risk factors for dissection, no widened mediastinum on CXR, pain not sudden onset, no ripping/tearing pain and no pain to back and CHF Reason(s) CHF less likely: Positive for no significant peripheral edema, no orthopnea and no evidence of fluid overload on CXR Treatment and Re-Evaluation :: Patient was informed the cause of her chest pain is uncertain. Light of her constellation of symptoms she may Discharge Plan Triage Chief Complaint: Chest Pain ED Provider: Miquel Gomes Dx/Rx/DC Orders Clinical Impression: Chest pressure, Paresthesia and pain of both upper extremities, Elevated blood pressure reading with diagnosis of hypertension, Hypothyroidism Instructions: ED Chest Pain, Noncardiac, ED Chest Pain, Uncertain Cause Prescriptions: No Action flurbiprofen 100 mg tablet 100 mg PO TID PRN (Reason: pain) Qty: 90 4RF buspirone 5 mg tablet 5 mg PO BID duloxetine 60 mg capsule,delayed release(DR/EC) 60 mg PO DAILY lamotrigine 25 mg tablet 50 mg PO ONCE Rx Instructions: take 2 tabs po once daily. Take 1 tab daily, if tolerating, increase to 2 tabs daily in 2 weeks thyroid (pork) [CLEANER ASSISTANT Thyroid] 90 mg tablet 90 mg PO DAILY pantoprazole 40 mg tablet,delayed release (DR/EC) 40 mg PO BID bupropion HCl [Wellbutrin SR] 150 mg tablet sustained-release 12 hr 150 mg PO BID lisinopril [Prinivil] 10 MG tablet 10 mg PO QHS multivitamin with minerals [Hair,Skin and Nails] 1 EACH tablet 1 ea PO BID omega-3 fatty acids-fish oil [Fish Oil] 1 EACH capsule 1 ea PO DAILY docusate sodium 100 MG capsule 100 mg PO BID PRN PRN (Reason: Constipation) Qty: 60 1RF Primary Care Provider: Luz Elena Diallo Referrals: Luz Elena Diallo NP-C [Primary Care Provider, Internal Medicine] - As Needed Print Language: Ukrainian Disposition Disposition: Home, Self Care
--- NOTE | 2024-11-30 15:02 | RAD_ITS ---
PROCEDURE: CHEST PA AND LATERAL 11/30/2024 REASON FOR EXAM: CHEST PRESSURE TECHNIQUE: Procedure Code: RADCXR Modality: DX Procedure: CHEST PA AND LATERAL COMPARISON: None FINDINGS: No focal consolidation. No pleural effusion or pneumothorax. Cardiac silhouette is within normal limits. No acute fractures. RAD/Chest PA and Lateral IMPRESSION: No focal consolidations. Reading Location: [id number]
[2024-11-30 15:03] LABS: Hematocrit 43.6 % (37-47); Hemoglobin 15.3 g/dL (12.0-15.0); Immature Granulocytes Count 0.080 X10^3/uL (0.0-0.0); Mean Corp Hgb Conc 35.1 g/dL (32-36); Mean Corpuscular Volume 83.0 fL (81-99); Mean Platelet Vol. 8.8 fl (6.2-12.0); NRBC Flagged by Analyzer 0 % (0-5); Platelet Count 251 K/mm3 (150-450); RBC Distribution Width CV 12.2 % (11.6-14.6); RBC Distribution Width SD 37.1 fl (35.1-43.9); Red Blood Count 5.25 M/mm3 (4.2-5.4); White Blood Count 10.7 K/mm3 (4.4-11.0)
[2024-11-30 15:36] LABS: AST(SGOT) 26 U/L (<=31); Alanine Aminotransfer ALT/SGPT 27 U/L (<=34); Albumin, Serum 4.5 g/dL (3.5-5.0); Alkaline Phosphatase 69 U/L (35-104); Anion Gap 13 (5-15); BUN 18 mg/dL (4-19); BUN/Creat Ratio 18.9 RATIO (10-20); Calcium,Total 9.6 mg/dL (7.6-11.0); Carbon Dioxide 24.6 mmol/L (21.0-32.0); Chloride 94 mmol/L (98-108); Estimated Creatinine Clearance 91.16 ml/min (50-250); Globulin 3.0 g/dL (2.2-4.2); Glucose 101 mg/dL (70-99); Potassium 4.1 mmol/L (3.3-5.1); Troponin T High Sensitivity < 6 ng/L (<=14)
[2024-11-30 15:40] VITALS: BP 121/70; PULSE 72; RESP 16; O2SAT 98
[2024-11-30 16:00] VITALS: BP 124/76; PULSE 79; RESP 11; O2SAT 96
[2024-11-30 17:00] VITALS: BP 119/81; PULSE 95; RESP 18; O2SAT 95
[2024-11-30 18:00] VITALS: BP 115/84
[2024-11-30 18:10] LABS: Troponin T High Sens 2 HR < 6 ng/L (<=14)
[2024-11-30 18:49] VITALS: BP 115/68; PULSE 60; RESP 14; TEMP 36.8; O2SAT 100
== END 2024-11-30 18:51 | disposition home or self-care (01) ==
PROVIDERS: Emergency Provider Emergency Medicine; PCP Nurse Practitioner Family; Visit Provider Emergency Medicine
DX: R07.89 Other chest pain (principal); E87.1 Hypo-osmolality and hyponatremia; E87.8 Other disorders of electrolyte and fluid balance, not elsewhere classified; M79.602 Pain in left arm; M79.601 Pain in right arm; R20.2 Paresthesia of skin; H93.19 Tinnitus, unspecified ear; E89.0 Postprocedural hypothyroidism; I10 Essential (primary) hypertension; Z79.82 Long term (current) use of aspirin; Z79.899 Other long term (current) drug therapy
CPT/HCPCS: 71046; 80053; 84484; 85025; 93005; 99284; A4216